=== PATIENT | female | born 1950 | race African-American/Black ===

== ENCOUNTER 2017-04-12 18:24 | Observation (INO) ==
[2017-04-12] MEDS ORDERED: Ondansetron 4 MG/2 ML VIAL IVP ONE (19:07)
[2017-04-12] MEDS ORDERED: *HR* FentaNYL (PF) 100 MCG/2 ML VIAL IVP ONE (19:07)
[2017-04-12] MEDS ORDERED: 0.9 % Sodium Chloride 1,000 ML IVC ONE (19:07)
--- NOTE | 2017-04-12 19:12 | Emergency Department Note ---
Disposition Clinical Impression: SBO (small bowel obstruction) Abdominal pain Qualifiers: Abdominal location: generalized Qualified Code(s): R10.84 - Generalized abdominal pain Vomiting Qualifiers: Vomiting type: unspecified Vomiting Intractability: non-intractable Nausea presence: with nausea Qualified Code(s): R11.2 - Nausea with vomiting, unspecified Disposition: Admitted As Inpatient Condition: Good Time of Disposition: 20:57 Abdominal Pain HPI - General Chief Complaint: ED Abdominal Pain Stated Complaint: ABD Pain/Vomiting Time Seen by Provider: 04/12/17 18:36 Source: patient Mode of arrival: ambulatory Nursing Notes Reviewed: Yes Vital Signs Reviewed: Yes - History of Present Illness HPI Narrative: Patient is a 66-year-old female with a history of multiple abdominal surgeries that presents to the emergency department with abdominal pain. Patient states that last night she went to [place] [employer] [place] and brought home fries and heated them up and after eating she started having mid abdominal pain. She states that this pain is intermittent and when it is bad it feels like someone is pulling her gets out. She states that she has vomited once about one hour ago. Patient states that she has used Pepto-Bismol and has provided some relief and eating makes her symptoms worse. Patient states her last bowel movement was 2 days ago. She states that she is still passing small amounts of gas. Patient currently states that her pain is a 2/10. Patient states that she has had something similar to this in the past and was diagnosed with gastritis. - Related Data Home Medications Medication Instructions Recorded Confirmed Albuterol Sulfate [Ventolin Hfa] 2 puff IH Q4H PRN 04/13/17 04/13/17 Bismuth Subsalicylate 15 ml PO QID PRN 04/13/17 04/13/17 [PEPTO-BISMOL (262mg/15mL) Susp] HYDROcodone/Acet 10/325 mg [Vista 1 tab PO Q6H PRN 04/13/17 04/13/17 10-325 mg] Ospemifene [Osphena] 60 mg PO DAILY 04/13/17 04/13/17 Allergies Allergy/AdvReac Type Severity Reaction Status Date / Time No Known Allergies Allergy Verified 06/20/15 12:45 All systems ED: reviewed and negative except as stated. Constitutional: Reports: other (Patient states she gets sweaty when the pain comes on). Denies: fever, chills Cardiovascular: Denies: chest pain, palpitations Respiratory: Denies: dyspnea Gastrointestinal: Reports: abdominal pain, vomiting Genitourinary: Denies: dysuria, frequency Abdominal Pain PMH - Past Medical History Medical history: Reports: GERD, hyperlipidemia, hypertension Female Surgical History: Reports: colectomy Psychiatric history: Reports: no psych history - Social History Smoking status: Current every day smoker Alcohol use: Reports: none Drug use: Reports: none Physical Exam - General Limitations: no limitations General appearance: alert, in distress - Head Head exam: atraumatic, normocephalic - Eye Eye exam: Present: normal appearance, PERRL - ENT ENT exam: normal exam, normal oropharynx - Neck Neck exam: Present: normal inspection, full ROM, trachea midline - Chest Chest inspection: Present: normal inspection, symmetric chest wall rise - Respiratory Respiratory exam: Present: normal lung sounds bilaterally. Absent: respiratory distress, wheezes - Cardiovascular Cardiovascular exam: Present: regular rate, normal rhythm, normal heart sounds, +S1, +S2 - Abdominal Exam Abdominal exam: Present: soft, tenderness (Midabdominal tenderness near previous surgical scar,), normal bowel sounds, scar (Multiple abdominal scars due to previous surgeries and colostomy) Abdominal tenderness: Present: mild - Extremities Exam Extremities exam: Present: normal inspection, full ROM - Expanded Lower Extremity Exam Neurovascular/Tendon exam: Present: normal capillary refill Gait: observed and normal - Back Exam Back exam: Present: normal inspection - Neurological Exam Neurological exam: Present: alert, oriented X3 - Psychiatric Psychiatric exam: Present: normal affect, normal mood - Skin Skin exam: Present: warm, dry, intact Course Vital Signs Temperature 98 F 04/12/17 18:27 Pulse Rate 82 04/12/17 18:27 Respiratory Rate 16 04/12/17 18:27 Blood Pressure 124/54 04/12/17 18:27 O2 Sat by Pulse Oximetry 98 04/12/17 18:27 Temperature 99.3 F 04/13/17 10:48 Pulse Rate 69 04/13/17 10:48 Respiratory Rate 15 04/13/17 10:48 Blood Pressure 148/76 04/13/17 10:48 O2 Sat by Pulse Oximetry 97 04/13/17 10:48 Oxygen Delivery Oxygen Delivery Room Air Abdominal Pain - MDM Narrative Medical decision making narrative: Due to the patient having multiple abdominal surgeries in the past and currently having abdominal pain we have ordered laboratory tests and a CT scan of her abdomen and pelvis. We have also ordered Zofran for the patient to help with any nausea. The patient's labs have all come back within normal limits. CT scan suggested an ileus but could not exclude the beginning of bowel obstruction. After discussing the results of the patient the patient preferred to be admitted to the hospital for observation. I spoke with Dr. Arellano from surgery he said that this can be admitted to medicine at 1050. Surgery is suggested an NG tube but the patient is not currently vomiting so we will wait on placing an NG tube. The attending spoke with Dr. Acosta at 1108 and they have accepted the patient to their service. the patient will be admitted to the hospital. - Lab Data Lab results reviewed: Yes I reviewed the patient's lab results. Result diagrams: 04/13/17 03:15 04/13/17 03:15 Lab Results 04/12/17 04/12/17 Range/Units 19:33 19:33 WBC 10.8 (4.3-11.1) K/mcL RBC 4.23 (3.82-4.97) M/mcL Hgb 13.4 (11.5-15.4) g/dL Hct 40.0 (35.3-44.9) % MCV 94.6 (83.0-100.0) fL MCH 31.7 (28.0-33.3) pg MCHC 33.5 (31.6-35.5) g/dL RDW 13.1 (11.5-14.5) % Plt Count 198 (140-400) K/mcL MPV 9.5 (9.4-12.4) fL Immature Gran % 0.4 (0-4) % Seg Neutrophils % 79.9 % Lymphocytes % 12.5 % Monocytes % 5.5 % Eosinophils % 1.2 % Basophils % 0.5 % Neutrophils # 8.6 (1.6-8.9) K/mcL Lymphocytes # 1.3 (0.6-4.6) K/mcL Monocytes # 0.6 (0.0-1.3) K/mcL Eosinophils # 0.1 (0.0-0.6) K/mcL Basophils # 0.1 (0.0-0.2) K/mcL Sodium 139 (136-145) mEq/L Potassium 4.5 (3.5-4.5) mEq/L Chloride 105 (98-109) mEq/L Carbon Dioxide 26 (19-29) mEq/L BUN 11 (7-20) mg/dL Creatinine 0.96 (0.57-1.11) mg/dL Est GFR ( Amer) > 60 (> 60) Est GFR (Non-Af Amer) 59 L (> 60) BUN/Creatinine Ratio 11 (6-26) Glucose 109 H (70-99) mg/dL Calculated Osmolality 288 (280-300) Calcium 9.2 (8.6-10.8) mg/dL Lipase 27 (8-78) Units/L - Radiology Data Radiology results reviewed: Yes I reviewed the patient's radiology results. 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 Tiny renal low-density lesions, likely cysts. Nonspecific mild prominence of the pancreatic duct. No focal abnormalities noted in the region of the ampulla. Multifocal postop change Multifocal small-bowel distention suggesting ileus. Developing obstruction would be difficult to exclude. Additional findings as described D/ / Aamir Blum / Aamir Blum Interpreting Provider: Aamir Blum
[2017-04-12 19:38] LABS: Basophils # 0.1 K/mcL (0.0-0.2); Basophils % 0.5 %; Eosinophils # 0.1 K/mcL (0.0-0.6); Eosinophils % 1.2 %; Hemoglobin 13.4 g/dL (11.5-15.4); Immature Granulocytes % 0.4 % (0-4); Lymphocytes # 1.3 K/mcL (0.6-4.6); Lymphocytes % 12.5 %; Mean Corpuscular HGB Conc 33.5 g/dL (31.6-35.5); Mean Corpuscular Hemoglobin 31.7 pg (28.0-33.3); Mean Corpuscular Volume 94.6 fL (83.0-100.0); Mean Platelet Volume 9.5 fL (9.4-12.4); Monocytes # 0.6 K/mcL (0.0-1.3); Monocytes % 5.5 %; Neutrophils # 8.6 K/mcL (1.6-8.9); Platelet Count 198 K/mcL (140-400); Red Blood Count 4.23 M/mcL (3.82-4.97); Red Cell Distribution Width 13.1 % (11.5-14.5); Segmented Neutrophils % 79.9 %
[2017-04-12 19:56] LABS: BUN/Creatinine Ratio 11 (6-26); Blood Urea Nitrogen 11 mg/dL (7-20); Calcium 9.2 mg/dL (8.6-10.8); Carbon Dioxide 26 mEq/L (19-29); Chloride 105 mEq/L (98-109); Glucose 109 mg/dL (70-99); Lipase 27 Units/L (8-78); Osmolality,Calculated 288 (280-300); Potassium 4.5 mEq/L (3.5-4.5); Sodium 139 mEq/L (136-145); eGFR For African Americans > 60 (> 60); eGFR For Non-African Americans 59 (> 60)
--- NOTE | 2017-04-12 20:13 | Emergency Department Note ---
START Narrative - START START: I examined this patient and my medical decision-making was reviewed with the CONCRETE PANEL INSTALLER/PA/Advanced Practice Nurse/Resident Physician. I agree with the documented findings, disposition and treatment plan as described except to the extent set forth below. ED attending: Patient's emergency medicine resident Dr. Gaines. Please see copy of this note for H&P evaluation and management and ED disposition. We both had independent [id number] time in contact with this patient. Briefly: A 66-year-old -[place] female multiple prior surgeries 30 years ago for salt. Patient has epigastric discomfort after eating sw[place] fries earlier with some distention and decreased bowel movements the past few days and passing gas. Epigastric voluntary guarding but no rebound. No distention bowel sounds are present. CBC and chemistry panel within normal limits. IV contrast abdominal pelvic CT is pending to exclude possible of ileus or small bowel obstruction. PT. stable
[2017-04-12] MEDS ORDERED: Naloxone 0.4 MG/ML INJ IVP PRN (21:15)
[2017-04-12] MEDS ORDERED: Ketorolac 30 MG/ML VIAL IVP PRN (21:15)
[2017-04-12] MEDS ORDERED: *HR* Morphine 2 MG/ML SYRINGE IVP PRN (21:15)
--- NOTE | 2017-04-12 22:21 | Internal Med History&Physical ---
Date of Encounter: 04/12/17 Time of Encounter: 22:00 Assessment and Plan (1) Abdominal pain Current visit: Yes Status: Acute Patient with acute generalized abdominal pain. CT abdomen and pelvis shows small bowel distention with ileus. Cannot exclude developing obstruction. Will keep patient in the hospital. Nothing by mouth. IV hydration. Serial abdominal exams. If patient develops intractable nausea and vomiting, we will place NG tube. Surgery has been consulted from the ER. We will follow recommendations. Monitor vital signs closely. Monitor input and output. Moderate risk for complications. We will repeat KUB x-ray in the morning Qualifiers: Abdominal location: generalized Qualified Code(s): R10.84 - Generalized abdominal pain (2) Ileus Current visit: Yes Status: Acute CT of the abdomen and pelvis is presence of ileus. Patient has not had bowel movement for 2 days. Could be developing obstruction. Treat symptomatically. (3) COPD (chronic obstructive pulmonary disease) Current visit: No Status: Acute Patient with history of COPD. Not in acute exacerbation at this time. We will use DuoNeb as needed. Qualifiers: COPD type: emphysema Emphysema type: panlobular Qualified Code(s): J43.1 - Panlobular emphysema (4) Gastritis Current visit: Yes Status: Chronic Patient has a history of gastritis. We will treat with PPI Qualifiers: Gastritis type: unspecified gastritis Chronicity: chronic Gastritis bleeding: without bleeding Qualified Code(s): K29.50 - Unspecified chronic gastritis without bleeding Internal Medicine - H&P: HPI Chief complaint: Abd pain Admitted From: Emergency Dept Plans for Post Hospital Care: Home History of present illness: Ms. Bruno is a 66 year old female patient with a history of COPD and prior abdominal surgery with temporary colostomy that years ago presented to the ER with complaints of acute abdominal pain. Patient has a history of gastritis in the past and had similar pain with episodes of gastritis before. However her current pain is more severe and has not improved since yesterday when it first began. She describes the pain as crampy, intermittent and generalized but more severe in the epigastric region. Denies any fever chills or night sweats. Had one episode of emesis but has persistent nausea. No hematemesis or melena. She denies taking NSAIDs regularly. Denies any cough, shortness of breath or sputum production. No diarrhea. Has not had a bowel movement for 2 days. Past Med Surg Social Fam HX - Past Medical History Attestation: Yes The following information was validated with the patient. Source: patient Medical history: GERD, hyperlipidemia, hypertension Psychiatric history: no psych history - Past Surgical History Surgical History: colostomy (exp laparotomy and temp colostomy) - Social History Smoking Status: Current every day smoker Smokeless Tobacco Status: No Alcohol use: none Drug use: none Internal Medicine - H&P: Meds Cefdinir [Omnicef] 300 mg PO BID #20 capsule 06/20/15 [Rx] Ibuprofen [Motrin] 800 mg PO Q6-8H PRN #30 tablet 06/20/15 [Rx] Lortab. 06/20/15 [History] Promethazine/Dextromethorphan [Promethazine-Dm Syrup] 5 ml PO Q4H PRN #120 ml [Rx] predniSONE [Prednisone] 40 mg PO DAILY #10 tablet 06/20/15 [Rx] Allergies No Known Allergies Allergy (Verified 06/20/15 12:45) All Systems PM: A 10-system review of systems was performed and is negative for pertinent findings except as documented above in the HPI. - Constitutional Constitutional: no chills, no fever(s), no night sweats - EENT Eyes: no change in vision, no discharge, no pain, no photophobia Ears: no ear discharge, no ear pain, no tinnitus Nose, mouth and throat: no dysphagia, no nasal discharge, no neck pain, no sore throat - Cardiovascular Cardiovascular ROS IM: no chest pain, no diaphoresis, no dyspnea, no lightheadedness, no palpitations, no syncope - Respiratory Respiratory: no cough, no dyspnea, no wheezing, no excessive phlegm production - Gastrointestinal Gastrointestinal: abdominal pain, vomiting, no diarrhea, no hematemesis, no hematochezia, no melena, no nausea - Genitourinary Genitourinary: no change in urinary stream, no dysuria, no flank pain, no hematuria - Musculoskeletal Musculoskeletal ROS IM: no numbness, no tingling - Integumentary Integumentary IM: no rash, no unusual bruising - Neurological Neurological ROS: no confusion, no convulsions, no focal weakness, no numbness, no tingling, no tremor(s) - Hematologic/Lymphatic Hematologic/Lymphatic: no easy bruising - Constitutional Vitals: Temp Pulse Resp BP Pulse Ox 98.4 F 64 16 134/73 95 04/12/17 22:05 04/12/17 22:05 04/12/17 22:05 04/12/17 22:05 04/12/17 22:05 General appearance: Present: cooperative, mild distress, A&O X 3, answers questions appropriately - Eye Eye exam: Present: EOMI, PERRL, conjuntiva pink, sclera anicteric - Neck Neck exam general surgery: Present: supple, trachea midline. Absent: lymphadenopathy - Respiratory Respiratory exam: Present: CTAB. Absent: accessory muscle use, rales, rhonchi, wheezes - Cardiovascular Cardiovascular exam: Present: RRR, +S1, +S2. Absent: diastolic murmur, gallop, rubs, systolic murmur - GI/Abdominal GI/Abdominal exam: Present: normal bowel sounds, soft, tenderness (generalized) , no peritoneal signs. Absent: distended - Extremities Exam Extremities exam: Present: warm, radial pulses palpable and symetrical. Absent : calf tenderness, cyanotic, pedal edema - Neurological Exam Neurological exam: Present: alert, CN II-XII intact, oriented X3, no focal deficits. Absent: facial droop, speech deficit - Skin Skin exam: Present: dry, intact Internal Med - H&P Results - Labs CBC & Chem 7: 04/12/17 19:33 04/12/17 19:33
[2017-04-12] MEDS: Pantoprazole 40 MG VIAL IVP SCH (22:26)
[2017-04-12] MEDS: 0.9 % Sodium Chloride 1,000 ML IVC SCH (22:26)
[2017-04-13 03:51] LABS: Basophils % 0.4 %; Eosinophils # 0.5 K/mcL (0.0-0.6); Eosinophils % 4.8 %; Hematocrit 39.3 % (35.3-44.9); Hemoglobin 13.4 g/dL (11.5-15.4); Immature Granulocytes % 0.4 % (0-4); Lymphocytes # 2.8 K/mcL (0.6-4.6); Lymphocytes % 28.6 %; Mean Corpuscular HGB Conc 34.1 g/dL (31.6-35.5); Mean Corpuscular Hemoglobin 32.5 pg (28.0-33.3); Mean Corpuscular Volume 95.4 fL (83.0-100.0); Mean Platelet Volume 9.9 fL (9.4-12.4); Monocytes # 0.8 K/mcL (0.0-1.3); Monocytes % 8.4 %; Neutrophils # 5.5 K/mcL (1.6-8.9); Platelet Count 201 K/mcL (140-400); Red Blood Count 4.12 M/mcL (3.82-4.97); Red Cell Distribution Width 13.1 % (11.5-14.5); Segmented Neutrophils % 57.4 %
[2017-04-13 03:52] LABS: INR 1.2; Prothrombin Time 12.5 Seconds (9.4-12.1)
[2017-04-13 04:07] LABS: Alanine Aminotransferase 11 Units/L (0-55); Albumin 3.6 g/dL (3.5-5.0); Alkaline Phosphatase 83 Units/L (38-126); Aspartate Amino Transferase 15 Units/L (5-34); BUN/Creatinine Ratio 11 (6-26); Bilirubin,Total 0.9 mg/dL (0.2-1.2); Blood Urea Nitrogen 10 mg/dL (7-20); Calcium 8.9 mg/dL (8.6-10.8); Carbon Dioxide 24 mEq/L (19-29); Chloride 109 mEq/L (98-109); Globulin 3.5 g/dL (2.4-3.5); Glucose 83 mg/dL (70-99); Osmolality,Calculated 290 (280-300); Potassium 4.4 mEq/L (3.5-4.5); Sodium 141 mEq/L (136-145); Total Protein 7.1 g/dL (6.0-8.3); eGFR For African Americans > 60 (> 60); eGFR For Non-African Americans > 60 (> 60)
[2017-04-13] MEDS: *HR* Heparin 5,000 UNIT/ML VIAL SQ SCH ×2 (05:36→17:37)
[2017-04-13] MEDS: 0.9 % Sodium Chloride 1,000 ML IVC SCH ×2 (07:55→17:38)
[2017-04-13] MEDS: Pantoprazole 40 MG VIAL IVP SCH (07:55)
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
[2017-04-13] MEDS ORDERED: Polyethylene Glycol 3350 255 GM POWDER PO ONE (10:24)
--- NOTE | 2017-04-13 15:03 | Internal Med Progress Note ---
Date of Encounter: 04/13/17 Time of Encounter: 15:01 - Assessment and plan (1) Abdominal pain Current Visit: Yes Status: Acute Assessment and plan: Perhaps related to small bowel obstruction has resolved now Qualifiers: Abdominal location: generalized Qualified Code(s): R10.84 - Generalized abdominal pain (2) Vomiting Current Visit: Yes Status: Acute Assessment and plan: Perhaps is related to a small bowel obstruction which has resolved now when necessary antiemetics Qualifiers: Vomiting type: unspecified Vomiting Intractability: non-intractable Nausea presence: with nausea Qualified Code(s): R11.2 - Nausea with vomiting, unspecified (3) COPD (chronic obstructive pulmonary disease) Current Visit: No Status: Acute Assessment and plan: History of smoking counseling provided continue home medications and inhalers on when necessary basis Qualifiers: COPD type: emphysema Emphysema type: panlobular Qualified Code(s): J43.1 - Panlobular emphysema (4) SBO (small bowel obstruction) Current Visit: Yes Status: Acute Assessment and plan: Surgery on the case KUB ordered clinically seems like obstruction has resolved - Subjective Interval history: Ms. Desire Bruno is a 66-year-old female admitted for small bowel obstruction. She has history of abdominal surgery almost 20 years ago. As I saw her this morning her symptoms have already resolved and her belly examination is absolutely benign. She has no bowel tones. It seems like that to her obstruction has resolved now. Plain abdominal films will be ordered. - Constitutional Vitals: Temp Pulse Resp BP Pulse Ox 99.3 F 69 15 148/76 97 04/13/17 10:48 04/13/17 10:48 04/13/17 10:48 04/13/17 10:48 04/13/17 10:48 General appearance: Present: cooperative, mild distress, A&O X 3, answers questions appropriately - Head Head exam: Present: atraumatic, normocephalic - Eye Eye exam: Present: PERRL, conjuntiva pink, sclera anicteric Pupils: Present: PERRL - Neck Neck exam general surgery: Present: supple, trachea midline. Absent: lymphadenopathy - Respiratory Respiratory exam: Present: CTAB. Absent: accessory muscle use, rales, rhonchi, wheezes - Cardiovascular Cardiovascular exam: Present: RRR, +S1, +S2. Absent: diastolic murmur, gallop, rubs, systolic murmur - GI/Abdominal GI/Abdominal exam: Present: normal bowel sounds, soft, no peritoneal signs. Absent: distended, tenderness - Extremities Exam Extremities exam: Present: warm, radial pulses palpable and symetrical. Absent : calf tenderness, cyanotic, pedal edema - Neurological Exam Neurological exam: Present: CN II-XII intact, oriented X3, no focal deficits. Absent: pronater drift, facial droop, speech deficit - Skin Skin exam: Present: dry, intact Internal Medicine: Result - Labs CBC & Chem 7: 04/13/17 03:15 04/13/17 03:15 Labs: Short CBC 04/13/17 Range/Units 03:15 WBC 9.6 (4.3-11.1) K/mcL Hgb 13.4 (11.5-15.4) g/dL Hct 39.3 (35.3-44.9) % Plt Count 201 (140-400) K/mcL Neutrophils # 5.5 (1.6-8.9) K/mcL BMP 04/13/17 03:15 Sodium 141 Potassium 4.4 Chloride 109 Carbon Dioxide 24 BUN 10 Creatinine 0.88 Glucose 83 Calcium 8.9 Liver Function 04/13/17 Range/Units 03:15 Total Bilirubin 0.9 (0.2-1.2) mg/dL AST 15 (5-34) Units/L ALT 11 (0-55) Units/L Alkaline Phosphatase 83 (38-126) Units/L Albumin 3.6 (3.5-5.0) g/dL - ABG Interpretation ABG results: PT/INR, D-dimer PT 12.5 Seconds (9.4-12.1) H 04/13/17 03:15 - Impressions Impressions KUB X-Ray 04/13/17 07:00 IMPRESSION: Unremarkable KUB. D/ / 04/13/2017 07:57:35 Wolf Jenkins MD / [facility] Interpreting Provider: Wolf Jenkins MD Consult Discharge Plan - Plan Referrals: Vladimir Vera MD [Primary Care Provider] -
[2017-04-13 17:08] LABS: Bilirubin,Urine Negative (Negative); Blood,Urine Negative (Negative); Color,Urine Yellow (Yellow); Glucose,Urine (UA) Normal (Normal); Ketones,Urine Negative (Negative); Leukocyte Esterase,Urine Large (Negative); Nitrite,Urine Negative (Negative); Protein,Urine Negative (Neg-Trace); Urobilinogen,Urine Normal (Normal)
[2017-04-13 17:10] LABS: Bacteria,Urine None Seen per hpf (None-Few); Hyaline Casts,Urine None Seen per lpf (None-Few); Squamous Epithelial Cell,Urine Many per lpf (None-Few); WBC,Urine 30-50 per hpf (0-3)
[2017-04-13 17:11] LABS: Clarity,Urine Hazy (Clear)
[2017-04-14] MEDS: 0.9 % Sodium Chloride 1,000 ML IVC SCH (04:02)
[2017-04-14 04:34] LABS: Basophils % 0.7 %; Eosinophils # 0.4 K/mcL (0.0-0.6); Hematocrit 37.2 % (35.3-44.9); Hemoglobin 12.6 g/dL (11.5-15.4); Immature Granulocytes % 0.2 % (0-4); Immature Platelets 3.7 % (1.1-6.1); Lymphocytes # 2.2 K/mcL (0.6-4.6); Lymphocytes % 40.3 %; Mean Corpuscular HGB Conc 33.9 g/dL (31.6-35.5); Mean Corpuscular Hemoglobin 32.2 pg (28.0-33.3); Mean Corpuscular Volume 95.1 fL (83.0-100.0); Monocytes # 0.6 K/mcL (0.0-1.3); Monocytes % 11.4 %; Neutrophils # 2.2 K/mcL (1.6-8.9); Platelet Count 202 K/mcL (140-400); Red Blood Count 3.91 M/mcL (3.82-4.97); Red Cell Distribution Width 12.8 % (11.5-14.5); Segmented Neutrophils % 40.4 %
[2017-04-14 05:00] LABS: Alanine Aminotransferase 10 Units/L (0-55); Albumin 3.4 g/dL (3.5-5.0); Alkaline Phosphatase 74 Units/L (38-126); Aspartate Amino Transferase 16 Units/L (5-34); BUN/Creatinine Ratio 11 (6-26); Bilirubin,Total 0.9 mg/dL (0.2-1.2); Blood Urea Nitrogen 9 mg/dL (7-20); Calcium 8.8 mg/dL (8.6-10.8); Carbon Dioxide 24 mEq/L (19-29); Chloride 109 mEq/L (98-109); Globulin 3.3 g/dL (2.4-3.5); Glucose 78 mg/dL (70-99); Osmolality,Calculated 286 (280-300); Sodium 139 mEq/L (136-145); Total Protein 6.7 g/dL (6.0-8.3); eGFR For African Americans > 60 (> 60); eGFR For Non-African Americans > 60 (> 60)
[2017-04-14] MEDS: *HR* Heparin 5,000 UNIT/ML VIAL SQ SCH (05:21)
--- NOTE | 2017-04-14 06:37 | General Surgery Progress Note ---
<Jeffery Lawson - Last Filed: 04/14/17 07:49> Date of Encounter: 04/14/17 Time of Encounter: 06:35 - Assessment and Plan (1) Epigastric abdominal pain Status: Resolved 04/14/17: Patient tolerated gatorade bowel prep well with a large bowel movement. BS present on exam without any TTP. Benign abdomen today. Discussed with patient the need to increase fiber/water and start with a daily stool softener Repeat labs normal Tolerated full liquid diet and will advance to regular. Surgery will sign off at this time. Thank you for involving us in this patient' s care. Please call if you have any questions or concerns. No followup with surgery in clinic is necessary. (2) Nausea Status: Resolved Continue supportive care with antiemetics. Well controlled at this time. (3) Constipation Status: Resolved See above Qualifiers: Constipation type: unspecified constipation type Qualified Code(s): K59.00 - Constipation, unspecified (4) COPD (chronic obstructive pulmonary disease) Status: Acute Qualifiers: COPD type: emphysema Emphysema type: panlobular Qualified Code(s): J43.1 - Panlobular emphysema (5) Tobacco abuse Status: Acute Nicotine patch when necessary Subjective Patient reports: no new complaints, feels better, pain is less, tolerating liquids well, voiding w/o difficulty, flatus, bowel movement, afebrile Narrative: Patient is lying comfortably in bed this morning. She states she drank half of her Gatorade prep with toleration followed by a large bowel movement. Objective Vital Signs - Last 8 Hours Temp Pulse Resp BP Pulse Ox 04/14/17 03:29 98.4 F 60 15 146/69 98 04/13/17 23:42 99.9 F H 62 14 166/80 97 Intake and Output 04/13/17 04/13/17 04/14/17 15:59 23:59 07:59 Intake Total 708 / 708 852 / 852 800 / 800 Output Total 225 / 225 0 / 0 Balance 483 / 483 852 / 852 800 / 800 Intake: IV Fluids 348 / 348 852 / 852 800 / 800 0.9 % Sodium Chloride 1, 348 / 348 852 / 852 800 / 800 000 ML @ 100 mls/hr IVC . Q10H [facility]ON[facility] Rx#:[id number] Oral 360 / 360 0 / 0 0 / 0 Output: Urine 225 / 225 0 / 0 Other: Meal NPO Percent of Meal Consumed 0% # Voids 1 1 1 Weight 64.33 kg 64.6 kg Blood Glucose* 95 Patient Weight 04/14/17 23:59 Weight 64.6 kg - General physical appearance well developed, well nourished, no distress - Eyes normal ocular movement - ENT atraumatic, normocephalic - Neck Neck exam: trachea midline - Respiratory normal expansion, normal respiratory effort, clear to auscultation - Cardiovascular Cardiovascular exam: Present: RRR, no murmurs/rubs/gallops - Abdomen Abdomen: Present: bowel sounds present, soft, non tender - Integumentary other (Warm and dry) - Neurologic CN 2-12 grossly intact - Psychiatric oriented to time, oriented to person, oriented to place, speech is normal, memory intact - Labs 04/14/17 03:39 04/14/17 03:39 Short CBC 04/14/17 Range/Units 03:39 WBC 5.5 (4.3-11.1) K/mcL Hgb 12.6 (11.5-15.4) g/dL Hct 37.2 (35.3-44.9) % Plt Count 202 (140-400) K/mcL Neutrophils # 2.2 (1.6-8.9) K/mcL BMP 04/14/17 Range/Units 03:39 Sodium 139 (136-145) mEq/L Potassium 4.0 (3.5-4.5) mEq/L Chloride 109 (98-109) mEq/L Carbon Dioxide 24 (19-29) mEq/L BUN 9 (7-20) mg/dL Creatinine 0.85 (0.57-1.11) mg/dL Glucose 78 (70-99) mg/dL Calcium 8.8 (8.6-10.8) mg/dL Liver Function 04/14/17 Range/Units 03:39 Total Bilirubin 0.9 (0.2-1.2) mg/dL AST 16 (5-34) Units/L ALT 10 (0-55) Units/L Alkaline Phosphatase 74 (38-126) Units/L Albumin 3.4 L (3.5-5.0) g/dL Urine 04/13/17 Range/Units 16:40 Urine Color Yellow (Yellow) Urine Clarity Hazy A (Clear) Urine pH 7.0 (5.0-8.0) pH Units Ur Specific [place] 1.010 (1.010-1.025) Urine Protein Negative (Neg-Trace) mg/dL Urine Glucose (UA) Normal (Normal) mg/dL Vital Signs Temp Pulse Resp BP Pulse Ox 04/14/17 03:29 98.4 F 60 15 146/69 98 04/13/17 23:42 99.9 F H 62 14 166/80 97 04/13/17 18:48 97.9 F 71 16 127/71 96 04/13/17 15:11 98.5 F 66 17 146/70 97 04/13/17 10:48 99.3 F 69 15 148/76 97 04/13/17 06:45 98.7 F 65 16 144/75 96 Intake and Output 04/13/17 04/13/17 04/14/17 15:59 23:59 07:59 Intake Total 708 / 708 852 / 852 800 / 800 Output Total 225 / 225 0 / 0 Balance 483 / 483 852 / 852 800 / 800 Intake: IV Fluids 348 / 348 852 / 852 800 / 800 0.9 % Sodium Chloride 1, 348 / 348 852 / 852 800 / 800 000 ML @ 100 mls/hr IVC . Q10H [facility]ON[facility] Rx#:[id number] Oral 360 / 360 0 / 0 0 / 0 Output: Urine 225 / 225 0 / 0 Other: Meal NPO Percent of Meal Consumed 0% # Voids 1 1 1 Weight 64.33 kg 64.6 kg Blood Glucose* 95 Patient Weight 04/14/17 23:59 Weight 64.6 kg Consult Discharge Plan - Plan Instructions: Bowel Obstruction (DC) Referrals: Vladimir Vera MD [Primary Care Provider] - Layla Boo CNP [Advanced Practice Nurse] - 04/21/17 2:15 pm Prescriptions: Docusate [Colace] 200 mg PO BID #60 capsule <Lucas Arellano - Last Filed: 04/15/17 06:42> Date of Encounter: 04/15/17 Objective Intake and Output 04/14/17 04/14/17 04/15/17 15:59 23:59 07:59 Intake Total 360 / 360 Output Total 300 / 300 Balance 60 / 60 Intake: Oral 360 / 360 Output: Urine 300 / 300 Other: Meal Lunch Percent of Meal Consumed 60% Weight 64.6 kg Blood Glucose* 95 - Labs 04/14/17 03:39 04/14/17 03:39 - Attending Attestation I examined this patient and my medical decision-making was reviewed with the Resident Physician. I agree with the documented findings, disposition and treatment plan as described except to the extent set forth below. I reviewed the assessment and evaluation with resident. Patient has significantly decreased abdominal pain and no nausea or vomiting. Positive bowel movements noted. Advance diet as tolerated surgical perspective the patient could be discharged home. Patient does not require any outpatient follow-up with surgery. We will sign off; think you very much.
[2017-04-14] MEDS: Pantoprazole 40 MG VIAL IVP SCH (09:54)
[2017-04-14 15:17] VITALS: BP 154/76
--- NOTE | 2017-04-14 15:45 | Discharge Summary ---
Date of Encounter: 04/14/17 Time of Encounter: 15:43 - Discharge Diagnosis (1) Abdominal pain Priority: Secondary Status: Acute Qualifiers: Abdominal location: generalized Qualified Code(s): R10.84 - Generalized abdominal pain (2) Vomiting Priority: Secondary Status: Acute Qualifiers: Vomiting type: unspecified Vomiting Intractability: non-intractable Nausea presence: with nausea Qualified Code(s): R11.2 - Nausea with vomiting, unspecified (3) COPD (chronic obstructive pulmonary disease) Priority: Secondary Status: Acute Qualifiers: COPD type: emphysema Emphysema type: panlobular Qualified Code(s): J43.1 - Panlobular emphysema (4) SBO (small bowel obstruction) Priority: Primary Status: Acute (5) Constipation Priority: Secondary Status: Resolved Qualifiers: Constipation type: unspecified constipation type Qualified Code(s): K59.00 - Constipation, unspecified - Discharge Medications Prescriptions: Docusate [Colace] 200 mg PO BID #60 capsule Home Medications: Albuterol Sulfate [Ventolin Hfa] 2 puff IH Q4H PRN 04/13/17 [History] Bismuth Subsalicylate [PEPTO-BISMOL (262mg/15mL) Susp] 15 ml PO QID PRN [History] HYDROcodone/Acet 10/325 mg [[place] 10-325 mg] 1 tab PO Q6H PRN 04/13/17 [History] Ospemifene [Osphena] 60 mg PO DAILY 04/13/17 [History] Docusate [Colace] 200 mg PO BID #60 capsule 04/14/17 [Rx] Allergies/Adverse Reactions: Allergies No Known Allergies Allergy (Verified 06/20/15 12:45) Date of admission: 04/12/17 21:08 Primary care physician: Vladimir Vera MD Consults: 04/12/17 22:47 Consult to Pastoral Services [CONS] Stat Comment: Discharging clinician: Amaya Martinez Anticipated date of discharge: 04/14/17 - Patient Status Disposition: Home, Self-Care Condition: Good Overall status at discharge: patient is progressing back to baseline - Discharge Instructions Follow Up With: Vladimir Vera MD [Primary Care Provider] - - Diet and Activity Activity: resume usual activities as tolerated Diet: advance to your usual diet (Use high-fiber diet) Interval History: Ms. Desire Bruno is a 66-year-old female admitted for partial small bowel obstruction. She had a CAT scan of abdomen in the ER. She has history of abdominal surgery almost 20 years ago. Surgery was consulted by admitting physician and they rendered the opinion that the patient has constipation. Conservative management for conservation resolve as well as bowel obstruction. She is tolerating full diet. Repeat abdominal film did not show any signs of obstruction. Examination is quite benign. She can be discharged home. She is advised to use high fiber diet. Hospital course: Ms. Bruno is a 66 year old female - Time Spent with Patient Total time spent providing and/or coordinating discharge services: Greater than 30 minutes - Constitutional Vitals: Temp Pulse Resp BP Pulse Ox 98.6 F 67 20 154/76 97 04/14/17 15:18 04/14/17 15:18 04/14/17 15:18 04/14/17 15:18 04/14/17 15:18 General appearance: Present: cooperative, mild distress, A&O X 3, answers questions appropriately - Head Head exam: Present: atraumatic, normocephalic - Eye Eye exam: Present: PERRL, conjuntiva pink, sclera anicteric Pupils: Present: PERRL - Neck Neck exam general surgery: Present: supple, trachea midline. Absent: lymphadenopathy - Respiratory Respiratory exam: Present: CTAB. Absent: accessory muscle use, rales, rhonchi, wheezes - Cardiovascular Cardiovascular exam: Present: RRR, +S1, +S2. Absent: diastolic murmur, gallop, rubs, systolic murmur - GI/Abdominal GI/Abdominal exam: Present: normal bowel sounds, soft, no peritoneal signs. Absent: distended, tenderness - Extremities Exam Extremities exam: Present: warm, radial pulses palpable and symetrical. Absent : calf tenderness, cyanotic, pedal edema - Neurological Exam Neurological exam: Present: CN II-XII intact, oriented X3, no focal deficits. Absent: pronater drift, facial droop, speech deficit - Skin Skin exam: Present: dry, intact
== END 2017-04-14 18:08 | disposition home or self-care (01) ==
LOC: EMEROO 18:24 → 3ANU 18:24
PROVIDERS: ADMIT Internal Medicine; ATTEND Internal Medicine

== ENCOUNTER 2018-08-09 00:17 | Inpatient (IN) ==
[2018-08-09] MEDS ORDERED: *HR* FentaNYL (PF) 100 MCG/2 ML VIAL IVP ONE (00:48)
[2018-08-09] MEDS ORDERED: Ondansetron 4 MG/2 ML VIAL IVP ONE (00:48)
--- NOTE | 2018-08-09 00:51 | Emergency Department Note ---
Disposition Clinical Impression: SBO (small bowel obstruction) Disposition: Admitted As Inpatient Condition: Fair Time of Disposition: 03:15 Abdominal Pain HPI - General Chief Complaint: ED Abdominal Pain Stated Complaint: "Abd Pain/N/V" Time Seen by Provider: 08/09/18 00:41 Source: patient Mode of arrival: ambulatory Limitations: no limitations Nursing Notes Reviewed: Yes Vital Signs Reviewed: Yes - History of Present Illness HPI Narrative: Patient is a 68-year-old female with past medical history of chronic low back pain and fibromyalgia and takes [place] daily for chronic pain, history of colectomy in the past after trauma, history of previous bowel obstruction, hypertension, diabetes, high cluster. She presents today due to nausea, vomiting, epigastric epigastric pain. She states that this began one to 2 hours prior to arrival. She ate dinner tonight at [facility], had no issues during the meal. After she came home, she started having epigastric pain. She then became nauseous. Upon arrival, she has had 2 episodes of nonbloody, nonbilious vomit. Currently describing her epigastric pain as squeezing sensation that starts in the epigastric region and radiates to the sides. Denies any fevers, chest pain, shortness of breath, dysuria, hematuria, vaginal bleeding or discharge. No one else that ate dinner tonight is sick. Denies any diarrhea, blood in stool. She does have chronic constipation secondary to chronic pain medication. However, she states that she had a normal bowel movement within the past 1-2 days. She does have a history of a previous bowel suction the presented somewhat similarly but she states that at that time, she had not had a bowel movement several days. Pain Scale: 6 - Related Data Home Medications Medication Instructions Recorded Confirmed RX: Albuterol Sulfate [Ventolin 2 puff IH Q4H PRN 04/13/17 04/13/17 Hfa] RX: Bismuth Subsalicylate 15 ml PO QID PRN 04/13/17 04/13/17 [PEPTO-BISMOL (262mg/15mL) Susp] RX: HYDROcodone/Acet 10/325 mg 1 tab PO Q6H PRN 04/13/17 04/13/17 [[place] 10-325 mg] RX: Ospemifene [Osphena] 60 mg PO DAILY 04/13/17 04/13/17 Previous Rx's Medication Instructions Recorded Docusate [Colace] 200 mg PO BID #60 capsule 04/14/17 Allergies Allergy/AdvReac Type Severity Reaction Status Date / Time No Known Allergies Allergy Verified 06/20/15 12:45 All systems ED: reviewed and negative except as stated. Constitutional: Denies: fever Cardiovascular: Denies: chest pain Respiratory: Denies: cough, dyspnea Gastrointestinal: Reports: abdominal pain, nausea, vomiting. Denies: diarrhea, constipation Genitourinary: Denies: urgency, dysuria, frequency, hematuria, discharge Neurological: Denies: headache, weakness, numbness, paresthesias Abdominal Pain PMH - Past Medical History Medical history: Reports: GERD, hyperlipidemia, hypertension, other Female Surgical History: Reports: colectomy Psychiatric history: Reports: no psych history - Social History Smoking status: Current every day smoker Alcohol use: Reports: none Drug use: Reports: none Physical Exam - General Limitations: no limitations General appearance: alert - Head Head exam: atraumatic, normocephalic, normal inspection - Eye Eye exam: Present: normal appearance, PERRL, EOMI - ENT ENT exam: normal oropharynx, mucous membranes dry (tacky) - Neck Neck exam: Present: normal inspection, full ROM, trachea midline - Chest Chest inspection: Present: normal inspection, symmetric chest wall rise - Respiratory Respiratory exam: Present: normal lung sounds bilaterally - Cardiovascular Cardiovascular exam: Present: regular rate, normal rhythm, normal heart sounds - Abdominal Exam Abdominal exam: Present: soft, tenderness (e[igastric - moderate). Absent: distention, guarding, rebound, Castro's sign, Rovsing's sign, tenderness at McBurney's Point - Extremities Exam Extremities exam: Present: normal inspection, full ROM. Absent: tenderness, pedal edema - Neurological Exam Neurological exam: Present: alert, oriented X3 - Psychiatric Psychiatric exam: Present: normal affect, normal mood - Skin Skin exam: Present: warm, dry, intact, normal color Course Course Narrative: Patient had moderate tenderness in the epigastric region with palpation. She has had tacky mucous membranes. We will go ahead and give the patient fentanyl for pain control, Zofran for nausea control, liter normal saline bolus. We will obtain basic labs, LFTs and lipase, CT abdomen pelvis for further assessment. Currently concern for viral etiology versus obstruction versus pancreatitis. Patient denies any chronic alcohol use but does state that she had a "[place] "today prior to coming in. 15:06 labs show mild elevation in white blood cell count. Otherwise, no other major lab abnormality. Currently waiting on urine. CT abdomen and pelvis shows small bowel obstruction with transition zone in the anterior left lower abdomen pelvis. Otherwise, no other acute intra-abdominal process. We will place NG tube, give additional pain medication and then admitted to hospitalist for further care. According to previous notes, patient followed in the hospital with [facility] for prior small bowel obstruction. Abdomen/Pelvis CT 08/09/18 00:59 IMPRESSION: There is evidence of a small bowel obstruction with transition zone in the anterior lower left abdomen/pelvis. There is mural thickening and enhancement of the involved small bowel loops in this region with mild mesenteric fat stranding. There is no pneumatosis, free air or free fluid. D/ / Aamir Covarrubias MD / Aamir Covarrubias MD Interpreting Provider: Aamir Covarrubias MD Vital Signs Temperature 98.6 F 08/09/18 00:18 Pulse Rate 88 08/09/18 00:18 Respiratory Rate 20 08/09/18 00:18 Blood Pressure 148/88 08/09/18 00:18 O2 Sat by Pulse Oximetry 97 08/09/18 00:18 Temperature 98.6 F 08/09/18 00:18 Pulse Rate 88 08/09/18 00:18 Respiratory Rate 20 08/09/18 00:18 Blood Pressure 148/88 08/09/18 00:18 O2 Sat by Pulse Oximetry 97 08/09/18 00:18 Oxygen Delivery Oxygen Delivery Room Air Abdominal Pain - MDM Narrative Medical decision making narrative: Patient had moderate tenderness in the epigastric region with palpation. She has had tacky mucous membranes. We will go ahead and give the patient fentanyl for pain control, Zofran for nausea control, liter normal saline bolus. We will obtain basic labs, LFTs and lipase, CT abdomen pelvis for further assessment. Currently concern for viral etiology versus obstruction versus pancreatitis. Patient denies any chronic alcohol use but does state that she had a "[place] "today prior to coming in. 15:06 labs show mild elevation in white blood cell count. Otherwise, no other major lab abnormality. Currently waiting on urine. CT abdomen and pelvis shows small bowel obstruction with transition zone in the anterior left lower abdomen pelvis. Otherwise, no other acute intra-abdominal process. We will place NG tube, give additional pain medication and then admitted to hospitalist for further care. According to previous notes, patient followed in the hospital with [facility] for prior small bowel obstruction. - Medical Records Medical records reviewed: Yes I reviewed the patient's medical records. - Lab Data Lab results reviewed: Yes I reviewed the patient's lab results. Result diagrams: 08/09/18 01:15 08/09/18 01:15 Lab Results 08/09/18 08/09/18 08/09/18 Range/Units 01:15 01:15 01:15 WBC 13.3 H (4.3-11.1) K/mcL RBC 4.60 (3.82-4.97) M/mcL Hgb 14.9 (11.5-15.4) g/dL Hct 43.6 (35.3-44.9) % MCV 94.8 (83.0-100.0) fL MCH 32.4 (28.0-33.3) pg MCHC 34.2 (31.6-35.5) g/dL RDW 13.2 (11.5-14.5) % Plt Count 225 (140-400) K/mcL MPV 9.3 L (9.4-12.4) fL Immature Gran % 0.4 (0-4) % Seg Neutrophils % 82.1 % Lymphocytes % 10.2 % Monocytes % 5.4 % Eosinophils % 1.4 % Basophils % 0.5 % Neutrophils # 10.9 H (1.6-8.9) K/mcL Lymphocytes # 1.4 (0.6-4.6) K/mcL Monocytes # 0.7 (0.0-1.3) K/mcL Eosinophils # 0.2 (0.0-0.6) K/mcL Basophils # 0.1 (0.0-0.2) K/mcL Sodium 141 (136-145) mEq/L Potassium 3.7 (3.5-5.1) mEq/L Chloride 105 (98-107) mEq/L Carbon Dioxide 27 (23-29) mEq/L BUN 11 (8-23) mg/dL Creatinine 0.84 (0.60-1.20) mg/dL Est GFR ( Amer) > 60 (> 60) Est GFR (Non-Af Amer) > 60 (> 60) BUN/Creatinine Ratio 13 (6-26) Glucose 133 H (70-105) mg/dL Calculated Osmolality 293 (280-300) Lactic Acid 1.9 (0.5-2.2) mmol/L Calcium 9.6 (8.6-10.3) mg/dL Total Bilirubin 0.5 (0.3-1.0) mg/dL Direct Bilirubin 0.1 (0.0-0.2) mg/dL Indirect Bilirubin 0.4 (0.0-1.2) mg/dL AST 13 (13-39) Units/L ALT 9 (7-52) Units/L Alkaline Phosphatase 78 (34-104) Units/L Serum Total Protein 7.7 (6.4-8.9) g/dL Albumin 4.6 (3.5-5.7) g/dL Globulin 3.1 (2.4-3.5) g/dL Albumin/Globulin Ratio 1.5 (1.1-2.2) Lipase 33 (11-82) Units/L - Radiology Data Radiology results reviewed: Yes I reviewed the patient's radiology results. Abdomen/Pelvis CT 08/09/18 00:59 IMPRESSION: There is evidence of a small bowel obstruction with transition zone in the anterior lower left abdomen/pelvis. There is mural thickening and enhancement of the involved small bowel loops in this region with mild mesenteric fat stranding. There is no pneumatosis, free air or free fluid. D/ / Aamir Covarrubias MD / Aamir Covarrubias MD Interpreting Provider: Aamir Covarrubias MD S.B.A.R. - S.B.A.R. Situation: Demographics, MOA Background: Presenting Complaint, Relevant PMH, Meds, & Allergies Assessment: Vital Signs, Course and respsone to treatment, Exam Concerns, Patient/Family Expectation, Pertinant Lab Results Recommendation: Barrier(s) to disposition, Recommendation based on pending studies, treatments, or consults SElijahKimberly Report Given to: Dr. Morgan Peralta Repor Time: 03:15 Attestation Statement - Attestation Attestation: Resident Attestation: I examined this patient and my medical decision making was reviewed with the Resident Physician. I agree with the documented findings, disposition and treatment plan as described except to the extent set forth below. We independently had [id number] contact with the patient. Pt seen with Resident Physician Dr. Medel. Please see resident note for further details and disposition. History of multiple surgeries presenting to emergency department for abdominal distention as well as nausea and vomiting. Patient's abdomen is mildly distended with generalized tenderness without rebound or guarding. No significant peripheral edema. CT scan shows small bowel obstruction. NG tube will be placed. Patient will be admitted for further monitoring and treatment.
[2018-08-09] MEDS ORDERED: 0.9 % Sodium Chloride 1,000 ML IVC ONE (00:55)
[2018-08-09] MEDS ORDERED: Isovue-370 500 ML INFUS..BTL IV ONE (00:59)
[2018-08-09 01:28] LABS: Basophils # 0.1 K/mcL (0.0-0.2); Basophils % 0.5 %; Eosinophils # 0.2 K/mcL (0.0-0.6); Eosinophils % 1.4 %; Hematocrit 43.6 % (35.3-44.9); Hemoglobin 14.9 g/dL (11.5-15.4); Immature Granulocytes % 0.4 % (0-4); Lymphocytes # 1.4 K/mcL (0.6-4.6); Lymphocytes % 10.2 %; Mean Corpuscular HGB Conc 34.2 g/dL (31.6-35.5); Mean Corpuscular Hemoglobin 32.4 pg (28.0-33.3); Mean Corpuscular Volume 94.8 fL (83.0-100.0); Mean Platelet Volume 9.3 fL (9.4-12.4); Monocytes # 0.7 K/mcL (0.0-1.3); Monocytes % 5.4 %; Neutrophils # 10.9 K/mcL (1.6-8.9); Platelet Count 225 K/mcL (140-400); Red Cell Distribution Width 13.2 % (11.5-14.5); Segmented Neutrophils % 82.1 %
[2018-08-09 01:48] LABS: Alanine Aminotransferase 9 Units/L (7-52); Albumin 4.6 g/dL (3.5-5.7); Albumin/Globulin Ratio 1.5 (1.1-2.2); Alkaline Phosphatase 78 Units/L (34-104); Aspartate Amino Transferase 13 Units/L (13-39); BUN/Creatinine Ratio 13 (6-26); Bilirubin,Direct 0.1 mg/dL (0.0-0.2); Bilirubin,Indirect 0.4 mg/dL (0.0-1.2); Bilirubin,Total 0.5 mg/dL (0.3-1.0); Blood Urea Nitrogen 11 mg/dL (8-23); Calcium 9.6 mg/dL (8.6-10.3); Carbon Dioxide 27 mEq/L (23-29); Chloride 105 mEq/L (98-107); Globulin 3.1 g/dL (2.4-3.5); Glucose 133 mg/dL (70-105); Lipase 33 Units/L (11-82); Osmolality,Calculated 293 (280-300); Potassium 3.7 mEq/L (3.5-5.1); Sodium 141 mEq/L (136-145); Total Protein 7.7 g/dL (6.4-8.9); eGFR For Non-African Americans > 60 (> 60)
[2018-08-09] MEDS ORDERED: Hyoscyamine 0.5 MG/ML MLS IVP STA (03:04)
[2018-08-09] MEDS ORDERED: *HR* FentaNYL (PF) 100 MCG/2 ML VIAL IVP STA (03:04)
--- NOTE | 2018-08-09 04:04 | Internal Med History&Physical ---
Addendum entered and electronically signed by Mike Hardy DO 08/09/18 07:47: Spoke with Dr. Rouse; recommends d/c NG tube, start patient on liquids and see how she tolerates them. Patient re-examined at bedside; states that she feels much better than when she came in. Denies abdominal pain, distension, nausea, or vomiting. She was instructed to take small sips of liquid. Original Note: Date of Encounter: 08/09/18 Time of Encounter: 07:18 Internal Medicine - H&P: HPI Chief complaint: Nausea, vomiting, epigastric pain History of present illness: Desire Bruno is a 68-year-old female with a PMH of GERD, HLD, chronic back pain, and HTN who presented to [facility] ED on 08/09/18 with chief complaint of nausea, vomiting, and epigastric pain. She reported that her pain started 1-2 hours prior to arrival. She reportedly ate dinner at [facility], and had no issues during her meal. When she came home, she began experiencing epigastric pain, nausea, and had 2 episodes of nonbloody nonbilious vomiting. She described her epigastric pain as a squeezing sensation that started in the epigastric region and radiated to both sides. She stated that no one else that ate dinner with her was sick. Denied having any changes in bowel habits. Patient does have chronic constipation secondary to chronic pain medication. Upon arrival to the emergency department, patients vital signs were as follows: Temperature 98.6, HR 88, RR 20, BP 148/88, O2 sat 97. Laboratory analysis demonstrated an elevated white count of 13.3 with left shift and an elevated glucose of 133. CT scan of the abdomen and pelvis demonstrated evidence of SBO with transition zone in the anterior lower left abdomen. Mural thickening and enhancement of the involved small bowel loops in this region with mesenteric fat stranding was also seen. No evidence of pneumatosis, free air or free fluid. In the ED, patient was given fentanyl for pain control, Zofran, and a bolus of normal saline. Patient seen and examined at bedside; patient reports that she is feeling better than when she did on admission. NG tube is in place. Currently denies having any fevers, chills, diarrhea, headache, chest pain, headache, or shortness of breath. She has no further complaints. Past Med Surg Social Fam HX - Past Medical History Medical history: GERD, hyperlipidemia, hypertension, other Psychiatric history: no psych history - Past Surgical History Surgical History: colostomy - Social History Smoking Status: Current every day smoker Smokeless Tobacco Status: No Alcohol use: none Drug use: none - Family History Mother Living Status: Age at : 64 Cause of : stomach cancer Internal Medicine - H&P: Meds Albuterol Sulfate [Ventolin Hfa] 2 puff IH Q4H PRN 04/13/17 [History] Bismuth Subsalicylate [PEPTO-BISMOL (262mg/15mL) Susp] 15 ml PO QID PRN 04/13/17 [History] HYDROcodone/Acet 10/325 mg [[place] 10-325 mg] 1 tab PO Q6H PRN 04/13/17 [History] Docusate [Colace] 200 mg PO BID #60 capsule 04/14/17 [Rx] Donepezil HCl 5 mg PO HS 08/09/18 [History] Allergy/AdvReac Type Severity Reaction Status Date / Time No Known Allergies Allergy Verified 06/20/15 12:45 All Systems PM: A 10-system review of systems was performed and is negative for pertinent findings except as documented above in the HPI. - Constitutional Constitutional: as per HPI, no anorexia, no chills, no lethargy - EENT Eyes: as per HPI - Cardiovascular Cardiovascular ROS IM: as per HPI, no chest pain, no diaphoresis, no dyspnea - Respiratory Respiratory: as per HPI, no cough, no wheezing - Gastrointestinal Gastrointestinal: as per HPI, abdominal pain, nausea, vomiting, no change in bowel habits, no change in stool character, no diarrhea, no hematemesis, no hematochezia, no melena - Genitourinary Genitourinary: no change in urinary stream, no dysuria, no flank pain, no hematuria - Musculoskeletal Musculoskeletal ROS IM: as per HPI, no numbness, no tingling - Integumentary Integumentary IM: as per HPI, no rash, no unusual bruising - Neurological Neurological ROS: as per HPI, no confusion, no convulsions, no focal weakness, no numbness, no tingling, no tremor(s) - Psychiatric Psychiatric: as per HPI, no confusion - Endocrine Endocrine IM: as per HPI, no fatigue, no flushing - Hematologic/Lymphatic Hematologic/Lymphatic: as per HPI, no easy bleeding, no easy bruising - Allergic/Immunologic Allergic/Immunologic: as per HPI - Constitutional Vitals: Temp Pulse Resp BP Pulse Ox 98.6 F 88 20 148/88 97 08/09/18 00:18 08/09/18 00:18 08/09/18 00:18 08/09/18 00:18 08/09/18 00:18 Exam: General: A&O X3, conversant, no acute distress Head: atraumatic, normocephalic, NG tube in place Eye: PERRL, EOMI, conjuntiva pink, sclera anicteric Neck: Supple, trachea midline; No lymphadenopathy Respiratory: CTAB. No accessory muscle use, wheezes, rales, or rhonchi Cardiovascular: RRR, +S1, +S2; no murmurs, rubs, gallops Abdomen: Soft, epigastric tenderness; no distention, guarding, or rebound Extremities: warm, radial pulses palpable and symmetrical Neurological: CN II-XII intact Psychiatric: Normal affect, normal mood Skin: Dry, intact Internal Med - H&P Results - Labs CBC & Chem 7: 08/09/18 01:15 08/09/18 01:15 Labs: Short CBC 08/09/18 Range/Units 01:15 WBC 13.3 H (4.3-11.1) K/mcL Hgb 14.9 (11.5-15.4) g/dL Hct 43.6 (35.3-44.9) % Plt Count 225 (140-400) K/mcL Neutrophils # 10.9 H (1.6-8.9) K/mcL BMP 08/09/18 01:15 Sodium 141 Potassium 3.7 Chloride 105 Carbon Dioxide 27 BUN 11 Creatinine 0.84 Glucose 133 H Calcium 9.6 Liver Function 08/09/18 Range/Units 01:15 Total Bilirubin 0.5 (0.3-1.0) mg/dL Direct Bilirubin 0.1 (0.0-0.2) mg/dL AST 13 (13-39) Units/L ALT 9 (7-52) Units/L Alkaline Phosphatase 78 (34-104) Units/L Albumin 4.6 (3.5-5.7) g/dL - Impressions ITS Impressions Abdomen/Pelvis CT 08/09/18 00:59 IMPRESSION: There is evidence of a small bowel obstruction with transition zone in the anterior lower left abdomen/pelvis. There is mural thickening and enhancement of the involved small bowel loops in this region with mild mesenteric fat stranding. There is no pneumatosis, free air or free fluid. D/ / Aamir Covarrubias MD / Aamir Covarrubias MD Interpreting Provider: Aamir Covarrubias MD - Assessment and plan (1) SBO (small bowel obstruction) Current Visit: Yes Status: Acute Assessment and plan: - Patient presented with nausea, vomiting, epigastric pain - CT scan of abdomen and pelvis demonstrated SBO with transition zone in anterior left lower abdomen - No evidence of free air or free fluid was seen on imaging - Patient denies having any changes in her bowel habits Plan: - Nothing by mouth diet - Consult surgery - Place NG tube - Zofran for nausea control (2) HTN (hypertension) Current Visit: Yes Status: Acute Assessment and plan: - Patient has a known history of hypertension - Last blood pressure was 148/88 - Hold by mouth meds Qualifiers: Hypertension type: essential hypertension Qualified Code(s): I10 - Essential (primary) hypertension (3) Constipation Current Visit: No Status: Resolved Assessment and plan: Secondary to chronic opiate use Qualifiers: Qualified Code(s): K59.00 - Constipation, unspecified (4) COPD (chronic obstructive pulmonary disease) Current Visit: No Status: Acute Qualifiers: Qualified Code(s): J44.9 - Chronic obstructive pulmonary disease, unspecified (5) Tobacco abuse Current Visit: No Status: Acute - Time Spent With Patient Total time spent is greater than 50% in coordination of care (as documented) at patient's floor/unit and/or counseling patient: 25 - 35 minutes
[2018-08-09] MEDS ORDERED: Ondansetron 4 MG/2 ML VIAL IVP PRN (04:33)
[2018-08-09] MEDS ORDERED: Naloxone 0.4 MG/ML INJ IVP PRN (04:35)
[2018-08-09] MEDS ORDERED: *HR* Promethazine 25 MG/ML VIAL IVP PRN (04:36)
[2018-08-09] MEDS: 0.9 % Sodium Chloride 1,000 ML IVC SCH ×2 (05:39→15:57)
[2018-08-09] MEDS: OXYCODONE Oral CONC 10 MG/0.5 ML ORAL.SYG SL PRN ×3 (05:58→21:10)
--- NOTE | 2018-08-09 06:52 | Event Note ---
Date of Encounter: 08/09/18 Time of Encounter: 06:49 Patient was seen and examined. I agree with the H&P as written by the resident physician. Patient presents with abdominal pain that started suddenly this evening. She complains of nausea and vomiting. No hematemesis. The patient in the ED was noted to have leukocytosis and was hemodynamically stable. Imaging studies showed small bowel obstruction with transition point in the anterior lower left abdomen. GEN: NAD CVS: RRR. S1, S2, No m/r/g RESP: CTAB ABD: Soft, NT, ND, and bowel sounds EXT: No edema. 2+ DP. No rashes NEURO: Nonfocal Admit to hospitalist with a consult surgery. NPO IV fluids, pain control, antiemetics. Resume home meds DVT prophylaxis
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
[2018-08-09] MEDS ORDERED: Chloraseptic Spray 177 ML BOTTLE MM PRN (10:55)
--- NOTE | 2018-08-09 12:19 | Event Note ---
Date of Encounter: 08/09/18 Time of Encounter: 10:10 H&P reviewed. 68-year-old female with history of extensive bowel surgery, colostomy with reversal, and hysterectomy, was admitted for epigastric pain and was found to have SBO with transition point in anterior left lower quadrant. States that her pain, nausea/vomiting had improved since the admission. Abdominal exam reveals distended abdomen but soft without rebound/guarding/rigidity. Surgery input appreciated, for small bowel follow- through with Gastrografin. Continue clear liquids. IV fluid, antiemetics. Smoking cessation emphasized, nicotine replacement therapy.
[2018-08-09] MEDS: *HR* Heparin 5,000 UNIT/ML VIAL SQ SCH ×2 (13:02→21:05)
[2018-08-09] MEDS: Nicotine 21 MG PATCH.TD24 TD SCH (13:02)
--- NOTE | 2018-08-09 14:50 | General Surgery Progress Note ---
Date of Encounter: 08/09/18 Time of Encounter: 14:46 Subjective Narrative: General Surgery - follow up consultation Small bowel follow-through completed without difficulty. There is normal transit time to the terminal ileum. No focal abnormalities, strictures or obstructions are seen.. Recommendations: Clear liquids; advance diet as tolerated No surgical intervention anticipated; will sign off. Objective Vital Signs - Last 8 Hours Temp Pulse Resp BP Pulse Ox 08/09/18 08:08 98.5 F 76 16 147/78 96 Intake and Output 08/08/18 08/09/18 08/09/18 23:59 07:59 15:59 Intake Total 1000 / 1000 0 / 0 Output Total 0 / 0 Balance 1000 / 1000 0 / 0 Intake: IV Fluids 1000 / 1000 0.9 % Sodium Chloride 1,000 ML 1000 / 1000 @ 999 mls/hr IVC .Q1H1M ONE Rx# :[id number] Oral 0 / 0 Output: Urine 0 / 0 Gastric Tube Lavage Amount 0 / 0 R 0 / 0 Gastric Drainage 0 / 0 Other: Stool Size Moderate Stool Consistency loose Stool Characteristics Normal for Patient Normal for Patient Stool Color Brown # Bowel Movements 2 Weight 63.8 kg Blood Glucose* 110 Patient Weight 08/09/18 23:59 Weight 63.8 kg - Labs 08/09/18 01:15 08/09/18 01:15 Diabetes panel 08/09/18 Range/Units 01:15 Sodium 141 (136-145) mEq/L Potassium 3.7 (3.5-5.1) mEq/L Chloride 105 (98-107) mEq/L Carbon Dioxide 27 (23-29) mEq/L BUN 11 (8-23) mg/dL Creatinine 0.84 (0.60-1.20) mg/dL Glucose 133 H (70-105) mg/dL Calcium 9.6 (8.6-10.3) mg/dL AST 13 (13-39) Units/L ALT 9 (7-52) Units/L Alkaline Phosphatase 78 (34-104) Units/L Albumin 4.6 (3.5-5.7) g/dL Calcium panel 08/09/18 Range/Units 01:15 Calcium 9.6 (8.6-10.3) mg/dL Albumin 4.6 (3.5-5.7) g/dL Pituitary panel 08/09/18 Range/Units 01:15 Sodium 141 (136-145) mEq/L Potassium 3.7 (3.5-5.1) mEq/L Chloride 105 (98-107) mEq/L Carbon Dioxide 27 (23-29) mEq/L BUN 11 (8-23) mg/dL Creatinine 0.84 (0.60-1.20) mg/dL Glucose 133 H (70-105) mg/dL Calcium 9.6 (8.6-10.3) mg/dL Adrenal panel 08/09/18 Range/Units 01:15 Sodium 141 (136-145) mEq/L Potassium 3.7 (3.5-5.1) mEq/L Chloride 105 (98-107) mEq/L Carbon Dioxide 27 (23-29) mEq/L BUN 11 (8-23) mg/dL Creatinine 0.84 (0.60-1.20) mg/dL Glucose 133 H (70-105) mg/dL Calcium 9.6 (8.6-10.3) mg/dL Total Bilirubin 0.5 (0.3-1.0) mg/dL AST 13 (13-39) Units/L ALT 9 (7-52) Units/L Alkaline Phosphatase 78 (34-104) Units/L Albumin 4.6 (3.5-5.7) g/dL Consult Discharge Plan - Plan Referrals: Vladimir Vera MD [Primary Care Provider] -
[2018-08-10] MEDS: OXYCODONE Oral CONC 10 MG/0.5 ML ORAL.SYG SL PRN (02:40)
[2018-08-10] MEDS: *HR* Heparin 5,000 UNIT/ML VIAL SQ SCH ×2 (05:03→14:52)
[2018-08-10 05:13] LABS: Basophils # 0.1 K/mcL (0.0-0.2); Basophils % 0.6 %; Eosinophils # 0.5 K/mcL (0.0-0.6); Eosinophils % 5.6 %; Hematocrit 38.9 % (35.3-44.9); Hemoglobin 13.5 g/dL (11.5-15.4); Immature Granulocytes % 0.5 % (0-4); Lymphocytes # 2.5 K/mcL (0.6-4.6); Lymphocytes % 28.9 %; Mean Corpuscular HGB Conc 34.7 g/dL (31.6-35.5); Mean Corpuscular Hemoglobin 32.3 pg (28.0-33.3); Mean Corpuscular Volume 93.1 fL (83.0-100.0); Mean Platelet Volume 9.4 fL (9.4-12.4); Monocytes # 0.8 K/mcL (0.0-1.3); Monocytes % 9.2 %; Neutrophils # 4.9 K/mcL (1.6-8.9); Platelet Count 197 K/mcL (140-400); Red Blood Count 4.18 M/mcL (3.82-4.97); Red Cell Distribution Width 13.2 % (11.5-14.5); Segmented Neutrophils % 55.2 %
[2018-08-10 05:33] LABS: BUN/Creatinine Ratio 9 (6-26); Blood Urea Nitrogen 7 mg/dL (8-23); Calcium 9.2 mg/dL (8.6-10.3); Carbon Dioxide 23 mEq/L (23-29); Chloride 108 mEq/L (98-107); Glucose 97 mg/dL (70-105); Osmolality,Calculated 282 (280-300); Potassium 3.6 mEq/L (3.5-5.1); Sodium 137 mEq/L (136-145); eGFR For Non-African Americans > 60 (> 60)
[2018-08-10] MEDS: Nicotine 21 MG PATCH.TD24 TD SCH (10:34)
[2018-08-10 14:08] VITALS: BP 133/71
--- NOTE | 2018-08-10 14:52 | Discharge Summary ---
- NOTES TO OUTPATIENT PROVIDER Notes to Outpatient Provider: Patient with history of extensive bowel surgery was admitted for abdominal pain and was diagnosed with SBO. Surgery evaluated the patient with small bowel follow through which was unremarkable. Part of her symptoms may also be attribute it to her chronic opioid use and increased sensitivity to pain. Conservatively managed and tolerated diet well on the day of discharge. She will be discharged home with PRN follow up with surgery. She scheduled for her primary care follow-up in one week and therefore will be provided with a short course of additional analgesics to bridge the gap. Trial of prilosec 20mg QD for a month also written. Orders not resulted at time of discharge: Pending orders 08/09/18 00:47 Urinalysis Reflex Cult & Micro [URIN] Stat Date of Encounter: 08/10/18 Time of Encounter: 14:20 - Discharge Diagnosis (1) HTN (hypertension) Priority: Secondary Status: Acute Qualifiers: Hypertension type: essential hypertension Qualified Code(s): I10 - Essential (primary) hypertension (2) SBO (small bowel obstruction) Priority: Primary Status: Acute (3) Tobacco abuse Priority: Secondary Status: Acute Hospital course: Ms. Bruno is a 68 year old female with history of extensive bowel surgery was admitted for abdominal pain and was diagnosed with SBO. Surgery evaluated the patient with small bowel follow through which was unremarkable. Part of her symptoms may also be attribute it to her chronic opioid use and increased sensitivity to pain. Conservatively managed and tolerated diet well on the day of discharge. She will be discharged home with PRN follow up with surgery. She scheduled for her primary care follow-up in one week and therefore will be provided with a short course of additional analgesics to bridge the gap. Trial of prilosec 20mg QD for a month also written. Discharge discussed with: patient, family, case management - Time Spent with Patient Total time spent providing and/or coordinating discharge services: 33 mins - Discharge Medications Prescriptions: RX: OxyCODONE Immed Rel [Roxicodone 5 MG] 5 mg PO Q8HR PRN 5 Days #15 tablet PRN Reason: Breakthrough Pain Omeprazole [PriLOSEC] 20 mg PO DAILY #30 cap Home Medications: HYDROcodone/Acet 10/325 mg [[place] 10-325 mg] 1 tab PO Q6H PRN 04/13/17 [History] Docusate [Colace] 200 mg PO BID #60 capsule 04/14/17 [Rx] Donepezil [Aricept] 5 mg PO HS 08/09/18 [History] Omeprazole [PriLOSEC] 20 mg PO DAILY #30 cap 08/10/18 [Rx] OxyCODONE Immed Rel [Roxicodone 5 MG] 5 mg PO Q8HR PRN 5 Days #15 tablet 08/10/18 [Rx] Allergies/Adverse Reactions: 3 Allergy/AdvReac Type Severity Reaction Status Date / Time No Known Allergies Allergy Verified 08/10/18 14:09 Date of admission: 08/09/18 03:41 Primary care physician: Vladimir Vera MD Consults: 08/09/18 07:30 Consult to Surgery [CONS] Routine Consulting Provider: Surgery [facility] - [facility] Reason for Consult: Small bowel obstruction Call Completed: No - Constitutional Vitals: Temp Pulse Resp BP Pulse Ox 98.6 F 65 16 133/71 96 08/10/18 14:07 08/10/18 14:07 08/10/18 14:07 08/10/18 14:07 08/10/18 14:07 Exam: General: Alert and oriented, not in acute distress. Cardiovascular:Normal S1 & S2, No JVD. Pulse regular. Lungs: clear to auscultation, no wheezes/rales Abdomen:Soft, non-tender, no rigidity. Extremities:No deformity or swelling Neurological:Normal cognition and motor skills. Non-focal - Patient Status Disposition: Home, Self-Care Condition: Fair Functional capacity at discharge: independent ambulation Overall status at discharge: patient is progressing back to baseline - Discharge Instructions Instructions: Chronic Hypertension (DC) Follow Up With: Layla Boo CNP [Advanced Practice Nurse] - 08/17/18 4:00 pm - Diet and Activity Activity: resume usual activities as tolerated Diet: advance to your usual diet
== END 2018-08-10 16:16 | disposition home or self-care (01) | DRG 390 ==
LOC: EMEROOARM 00:17 → 3ANU 00:17 → SUATTDRO 03:41 → 3ANU 04:25
PROVIDERS: ADMIT Pediatrics; ATTEND Internal Medicine

== ENCOUNTER 2018-12-20 19:10 | Inpatient (IN) ==
[2018-12-20] MEDS ORDERED: 0.9 % Sodium Chloride 1,000 ML IVC ONE (19:25)
[2018-12-20] MEDS ORDERED: Ondansetron 4 MG/2 ML VIAL IVP ONE (19:25)
[2018-12-20] MEDS ORDERED: *HR* FentaNYL (PF) 100 MCG/2 ML VIAL IVP ONE ×2 (19:26→20:32)
[2018-12-20] MEDS ORDERED: Isovue-370 500 ML BOTTLE IVP ONE (19:26)
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
[2018-12-20] MEDS ORDERED: GI Cocktail 40 ML EACH PO ONE (20:33)
[2018-12-20] MEDS ORDERED: Metoclopramide 10 MG/2 ML VIAL IVP ONE (20:34)
[2018-12-20 21:20] LABS: Basophils % 0.3 %; Eosinophils # 0.1 K/mcL (0.0-0.6); Eosinophils % 0.9 %; Hematocrit 37.8 % (35.3-44.9); Hemoglobin 12.8 g/dL (11.5-15.4); Immature Granulocytes % 0.3 % (0-4); Lymphocytes # 1.3 K/mcL (0.6-4.6); Mean Corpuscular HGB Conc 33.9 g/dL (31.6-35.5); Mean Corpuscular Hemoglobin 30.7 pg (28.0-33.3); Mean Corpuscular Volume 90.6 fL (83.0-100.0); Mean Platelet Volume 9.9 fL (9.4-12.4); Monocytes # 0.7 K/mcL (0.0-1.3); Monocytes % 7.5 %; Neutrophils # 7.1 K/mcL (1.6-8.9); Platelet Count 187 K/mcL (140-400); Red Blood Count 4.17 M/mcL (3.82-4.97); Red Cell Distribution Width 14.2 % (11.5-14.5)
[2018-12-20 21:31] LABS: INR 1.1; Prothrombin Time 12.3 Seconds (9.4-12.1)
[2018-12-20 21:34] LABS: Activated Partial Thrombo Time 28.9 Seconds (26.0-36.0)
[2018-12-20 21:45] LABS: Alanine Aminotransferase 13 Units/L (7-52); Albumin 3.8 g/dL (3.5-5.7); Albumin/Globulin Ratio 1.5 (1.1-2.2); Alkaline Phosphatase 86 Units/L (34-104); Aspartate Amino Transferase 14 Units/L (13-39); BUN/Creatinine Ratio 23 (6-26); Bilirubin,Direct 0.1 mg/dL (0.0-0.2); Bilirubin,Indirect 0.7 mg/dL (0.0-1.2); Bilirubin,Total 0.8 mg/dL (0.3-1.0); Blood Urea Nitrogen 14 mg/dL (8-23); Carbon Dioxide 23 mEq/L (23-29); Chloride 112 mEq/L (98-107); Globulin 2.5 g/dL (2.4-3.5); Glucose 112 mg/dL (70-105); Lipase 25 Units/L (11-82); Osmolality,Calculated 299 (280-300); Potassium 3.4 mEq/L (3.5-5.1); Sodium 144 mEq/L (136-145); Total Protein 6.3 g/dL (6.4-8.9); Troponin I < 0.03 ng/mL (< 0.04); eGFR For Non-African Americans > 60 (> 60)
[2018-12-20] MEDS ORDERED: *HR* HYDROmorphone 2 MG/ML SYRINGE IVP ONE (22:01)
[2018-12-20 22:26] LABS: Bilirubin,Urine Negative (Negative); Blood,Urine Negative (Negative); Clarity,Urine Clear (Clear); Color,Urine Yellow (Yellow); Glucose,Urine (UA) Normal (Normal); Ketones,Urine Negative (Negative); Leukocyte Esterase,Urine Trace (Negative); Nitrite,Urine Negative (Negative); PH,Urine 7.5 pH Units (5.0-8.0); Protein,Urine Negative (Neg-Trace); Specific Gravity,Urine 1.009 (1.010-1.025); Urobilinogen,Urine Normal (Normal)
[2018-12-20 22:44] LABS: Bacteria,Urine None Seen per hpf (None-Few); Hyaline Casts,Urine None Seen per lpf (None-Few); RBC,Urine 0-3 per hpf (0-3); Squamous Epithelial Cell,Urine Many per lpf (None-Few); WBC,Urine 0-3 per hpf (0-3)
[2018-12-21] MEDS ORDERED: *HR* HYDROmorphone 2 MG/ML SYRINGE IVP ONE (01:25)
[2018-12-21] MEDS ORDERED: Ketorolac 30 MG/ML VIAL IVP ONE (01:25)
[2018-12-21] MEDS ORDERED: Ondansetron 4 MG/2 ML VIAL IVP PRN (01:26)
[2018-12-21] MEDS ORDERED: Naloxone 0.4 MG/ML INJ IVP PRN (01:29)
[2018-12-21] MEDS: Ringers Solution, Lactated 1,000 ML IVC SCH ×2 (01:39→08:50)
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
[2018-12-21 05:00] LABS: BUN/Creatinine Ratio 21 (6-26); Blood Urea Nitrogen 15 mg/dL (8-23); Calcium 9.3 mg/dL (8.6-10.3); Carbon Dioxide 24 mEq/L (23-29); Chloride 108 mEq/L (98-107); Glucose 128 mg/dL (70-105); Osmolality,Calculated 290 (280-300); Potassium 4.7 mEq/L (3.5-5.1); Sodium 139 mEq/L (136-145); eGFR For Non-African Americans > 60 (> 60)
[2018-12-21] MEDS: *HR* Heparin 5,000 UNIT/ML VIAL SQ SCH ×2 (05:23→18:06)
[2018-12-21] MEDS: OXYCODONE Oral CONC 10 MG/0.5 ML ORAL.SYG SL PRN ×3 (07:22→18:06)
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
[2018-12-21] MEDS: Ketorolac 30 MG/ML VIAL IVP PRN ×3 (08:49→21:59)
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
[2018-12-21] MEDS ORDERED: *HR* Metoprolol 5 MG/5 ML VIAL IVP PRN (14:27)
[2018-12-21] MEDS: 0.9 % Sodium Chloride 1,000 ML IVC SCH (20:58)
[2018-12-22] MEDS: OXYCODONE Oral CONC 10 MG/0.5 ML ORAL.SYG SL PRN ×2 (00:22→05:02)
[2018-12-22] MEDS: Ketorolac 30 MG/ML VIAL IVP PRN ×2 (03:59→10:08)
[2018-12-22] MEDS ORDERED: *HR* Dextrose 50 % in Water (Syg) 50 ML SYRINGE IVP PRN (04:51)
[2018-12-22] MEDS ORDERED: Dextrose Gel 15 GM/37.5 ML TUBE PO PRN ×2 (04:51)
[2018-12-22] MEDS ORDERED: D5% in Water 1,000 ML IVC PRN (04:51)
[2018-12-22] MEDS: 0.9 % Sodium Chloride 1,000 ML IVC SCH (10:45)
--- NOTE | 2018-12-22 10:58 | AcuteCareSurgery Progress Note ---
Date of Encounter: 12/22/18 Time of Encounter: 07:30 - Assessment and Plan (1) Ileus Current Visit: Yes Status: Acute The patient does not appear to have clinically significant bowel obstruction at this point. A dietary trial was recommended. The abdomen is soft and nontender. Surgery will sign off at this point Subjective Narrative: The patient is seen and evaluated on morning rounds with the acute care surgery team the patient does not have a nasogastric tube in place. Her abdomen is soft and nontender nondistended and bowel sounds are normal. She has no nausea or vomiting. It is reasonable to proceed with dietary trial. Would recommend clear liquid diet. Objective Vital Signs - Last 8 Hours Temp Pulse Resp BP Pulse Ox 12/22/18 10:27 98.3 F 91 14 134/66 94 12/22/18 07:52 98.5 F 58 16 131/63 95 12/22/18 05:00 98.4 F 65 18 130/75 96 Intake and Output 12/21/18 12/22/18 12/22/18 23:59 07:59 15:59 Intake Total 0 / 0 0 / 0 1000 / 1000 Output Total 400 / 400 800 / 800 200 / 200 Balance -400 / -400 -800 / -800 800 / 800 Intake: IV Fluids 1000 / 1000 0.9 % Sodium Chloride 1,000 ML 1000 / 1000 @ 75 mls/hr IVC .[id number] [facility] Rx #:[id number] Oral 0 / 0 0 / 0 0 / 0 Output: Urine 400 / 400 800 / 800 200 / 200 Other: Meal NPO NPO Blood Glucose* 140 - General physical appearance well developed, well nourished, no pain - Respiratory normal expansion, normal respiratory effort, clear to percussion, clear to auscultation - Cardiovascular Cardiovascular exam: Present: RRR, no murmurs/rubs/gallops - Abdomen Abdomen: Present: bowel sounds present, soft, non tender (No evidence of distention) - Neurologic normal coordination, normal sensation - Psychiatric oriented to time, oriented to person, oriented to place, speech is normal, memory intact - Labs 12/20/18 20:46 12/21/18 04:03 Consult Discharge Plan - Plan Referrals: Vladimir Vera MD [Primary Care Provider] -
[2018-12-22 11:42] LABS: Basophils % 0.4 %; Eosinophils # 0.4 K/mcL (0.0-0.6); Eosinophils % 5.4 %; Hematocrit 36.7 % (35.3-44.9); Immature Granulocytes % 0.4 % (0-4); Lymphocytes # 1.6 K/mcL (0.6-4.6); Lymphocytes % 23.9 %; Mean Corpuscular HGB Conc 32.7 g/dL (31.6-35.5); Mean Corpuscular Hemoglobin 30.5 pg (28.0-33.3); Mean Corpuscular Volume 93.1 fL (83.0-100.0); Mean Platelet Volume 10.1 fL (9.4-12.4); Monocytes # 0.7 K/mcL (0.0-1.3); Monocytes % 10.8 %; Neutrophils # 4.1 K/mcL (1.6-8.9); Platelet Count 177 K/mcL (140-400); Red Blood Count 3.94 M/mcL (3.82-4.97); Red Cell Distribution Width 14.4 % (11.5-14.5); Segmented Neutrophils % 59.1 %
[2018-12-22 12:00] LABS: BUN/Creatinine Ratio 22 (6-26); Blood Urea Nitrogen 18 mg/dL (8-23); Carbon Dioxide 24 mEq/L (23-29); Chloride 112 mEq/L (98-107); Glucose 73 mg/dL (70-105); Osmolality,Calculated 302 (280-300); Potassium 4.2 mEq/L (3.5-5.1); Sodium 146 mEq/L (136-145); eGFR For Non-African Americans > 60 (> 60)
[2018-12-22] MEDS ORDERED: DIATRIZOATE MEGLUMINE, SODIUM 120 ML SOLUTION PO ONE (14:06)
--- NOTE | 2018-12-22 19:47 | Internal Med Progress Note ---
Hospitalist Progress Note - Encounter Date of Encounter: 12/22/18 Time of Encounter: 11:00 - Subjective Interval History: Patient with no evidence of obstruction on small bowel follow-through Recommendations to start patient on clear liquid diet and to advance as tolerated - Exam Vitals: Temp Pulse Resp BP Pulse Ox 98.2 F 73 14 159/80 98 12/22/18 18:49 12/22/18 18:49 12/22/18 18:49 12/22/18 18:49 12/22/18 18:49 Exam: Gen.: Nonacute distress, alert and oriented 3 ENT: Mucosal membranes moist Respiratory: Lungs are clear to auscultation bilaterally without any wheezing rhonchi or rales Cardiovascular: Normal S1 and S2 regular rate rhythm no murmurs rubs or gallops Abdomen: Soft, nontender and nondistended with positive bowel sounds Extremities: No lower extremity edema Skin: Normal color - Assessment and Plan (1) SBO (small bowel obstruction) Current Visit: Yes Status: Acute Assessment and Plan: Small bowel follow-through with no evidence of obstruction Surgery with recommendations to advance diet as tolerates (2) COPD (chronic obstructive pulmonary disease) Current Visit: Yes Status: Chronic Assessment and Plan: Currently asymptomatic. Nebulizer therapy prn. Smoking cessation advised. (3) Tobacco abuse Current Visit: Yes Status: Chronic Assessment and Plan: Nicotine replacement as needed (4) HTN (hypertension) Current Visit: No Status: Chronic Assessment and Plan: Currently well controlled. Will monitor and intervene as necessary. (5) CAD (coronary artery disease) Current Visit: Yes Status: Acute Assessment and Plan: Continue home medications - Time Spent with Patient Total time spent is greater than 50% in coordination of care (as documented) at patient's floor/unit and/or counseling patient: Internal Medicine: Result - Labs CBC & Chem 7: 12/22/18 11:21 12/22/18 11:21 Labs: Short CBC 12/22/18 Range/Units 11:21 WBC 6.9 (4.3-11.1) K/mcL Hgb 12.0 (11.5-15.4) g/dL Hct 36.7 (35.3-44.9) % Plt Count 177 (140-400) K/mcL Neutrophils # 4.1 (1.6-8.9) K/mcL BMP 12/22/18 11:21 Sodium 146 H Potassium 4.2 Chloride 112 H Carbon Dioxide 24 BUN 18 Creatinine 0.83 Glucose 73 Calcium 9.0 - ABG Interpretation ABG results: PT/INR, D-dimer PT 12.3 Seconds (9.4-12.1) H 12/20/18 20:46 - Impressions Impressions KUB X-Ray 12/21/18 07:00 IMPRESSION: Dilated small bowel in the left abdomen up to 3 cm compatible with small bowel obstruction from the recent CT. D/ / 12/21/2018 07:31:21 Truong Ortiz MD / [email or web address] Interpreting Provider: Truong Ortiz MD Small Bowel X-Ray 12/22/18 10:53 IMPRESSION: Normal transit time to the terminal ileum. No dilated bowel. No evidence of bowel obstruction. D/ / 12/22/2018 15:16:56 Malick Hernandez MD / morgan Interpreting Provider: Malick Hernandez MD Consult Discharge Plan - Plan Referrals: Vladimir Vera MD [Primary Care Provider] - ____ (2) COPD (chronic obstructive pulmonary disease) Qualifiers: COPD type: unspecified COPD Qualified Code(s): J44.9 - Chronic obstructive pulmonary disease, unspecified (4) HTN (hypertension) Qualifiers: Hypertension type: essential hypertension Qualified Code(s): I10 - Essential (primary) hypertension (5) CAD (coronary artery disease) Qualifiers: Coronary Disease-Associated Artery/Lesion type: bypass graft [place] vs. transplanted heart: [place] heart Associated angina: without angina Qualified Code(s): I25.810 - Atherosclerosis of coronary artery bypass graft(s) without angina pectoris
[2018-12-22] MEDS ORDERED: Metoprolol XL (24 HR) Succ 25 MG TAB.ER.24H PO SCH (21:00)
[2018-12-23] MEDS ORDERED: Aspirin Enteric Coated 81 MG Tablet PO SCH (09:00)
[2018-12-23 14:24] VITALS: BP 144/79
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
--- NOTE | 2018-12-24 10:04 | Electrocardiograph Report ---
[address] [place], [place] [address] Test Date: 2018-12-20 Pat Name: Desire Bruno Department: [id number] Room: 3A43 Gender: F [employer]: : 1950 Requested By: Remberto Curry Order Number: [id number] Reading MD: Bharat Lema Measurements Intervals [place] Rate: 61 P: 50 MA: 155 QRS: 32 QRSD: 132 T: 147 QT: 456 QTc: 460 Interpretive Statements Sinus rhythm Nonspecific intraventricular conduction delay Nonspecific ST-T changes Electronically Signed On 12-24-2018 10:02:59 EDT by Bharat Lema
== END 2018-12-23 17:33 | disposition home or self-care (01) | DRG 389 ==
LOC: EMEROOARM 19:10 → 3ANU 19:10 → SUATTDRO 23:40 → 3ANU 12-21 00:24
PROVIDERS: ADMIT Internal Medicine; ATTEND Hospitalist